=== PATIENT | female | born 1975 | race Caucasian/White ===

== ENCOUNTER 2023-10-23 22:29 | Emergency (ER) | payer BC ==
[~2023-10-23] VITALS: Ht 162.6 cm; Wt 49.9 kg
[2023-10-23 22:40] VITALS: BP 109/65; PULSE 98; RESP 18; TEMP 97.4; O2SAT 100
== END 2023-10-24 00:14 | disposition left against medical advice (07) ==
LOC: MED 22:29
DX: F41.9 Anxiety disorder, unspecified (principal); Z53.21 Procedure and treatment not carried out due to patient leaving prior to being seen by health care provider